=== PATIENT | female | born 1970 | race American Indian/Alaskan Native ===

== ENCOUNTER 2017-12-24 15:35 | Outpatient (CLI) | payer OTHER | END 2017-12-24 15:36 | disposition home or self-care (01) | LOC: LABHHL 15:35 | PROVIDERS: ATTEND Surgery | DX: D05.12 Intraductal carcinoma in situ of left breast (principal) | CPT/HCPCS: 88305; 88342; 88361 ==

== ENCOUNTER 2017-12-31 14:59 | Outpatient (CLI) | payer OTHER | END 2017-12-31 15:00 | disposition home or self-care (01) | LOC: LABHHL 14:59 | PROVIDERS: ATTEND Surgery | DX: N60.11 Diffuse cystic mastopathy of right breast (principal) | CPT/HCPCS: 88305 ==

== ENCOUNTER 2018-01-11 12:25 | Outpatient (CLI) | payer BC ==
--- NOTE | 2018-01-14 16:43 | Ultrasound Report ---
ULTRASOUND GUIDED NEEDLE CORE BIOPSY OF A LEFT AXILLARY LYMPH NODE WITH CLIP PLACEMENT : 01/11/18 12:25:00 CLINICAL: Newly diagnosed left breast cancer. COMPARISON :12/24/17 left mammogram. FINDINGS: The procedure was explained to the patient and informed consent was obtained. Ultrasound demonstrated a left axillary lymph node with mild cortical thickening of approximately 4 mm. The skin in the axilla was prepped with Betadine and anesthetized with 1% lidocaine. Ultrasound guided needle core biopsy of the lymph node was performed through a small dermatotomy using 2% lidocaine with epinephrine for deep anesthesia and a 18-gauge Achieve biopsy device. Multiple samples were obtained and placed in formalin. A clip was deployed within the lymph node. Hemostasis was achieved with minimal pressure and a sterile dressing was applied. The patient tolerated the procedure well and there were no apparent complications. She was discharged in good condition and was given instructions for wound care and followup. IMPRESSION: Uncomplicated ultrasound-guided needle core biopsy of a left lymph node with clip placement.
== END 2018-01-11 12:26 | disposition home or self-care (01) ==
LOC: SPVWC 12:25
PROVIDERS: ATTEND Surgery
DX: C50.912 Malignant neoplasm of unspecified site of left female breast (principal); D36.0 Benign neoplasm of lymph nodes
CPT/HCPCS: 38505; 76942; 88305; A4648

== ENCOUNTER 2018-01-14 13:05 | Outpatient (CLI) | payer BC ==
--- NOTE | 2018-01-14 16:54 | Magnetic Resonance Report ---
BILATERAL BREAST MRI WITHOUT AND WITH CONTRAST: 01/14/18 13:05:00 CLINICAL: Newly diagnosed left breast cancer. 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 COMPARISON:12/09/17 Bilateral Mammogram. TECHNIQUE: Axial 1.0-mm T1 without, axial high resolution 2.0-mm T2 and axial 1.0-mm dynamic Vibrant high-resolution postcontrast T1 fat saturation sequences on a 1.5 Sherry magnet. The examination was performed with an 8 channel dedicated [place] breast coil. Post processing with CAD and subtraction was performed on an [employer] workstation. 14.0 cc of Multihance was injected without incident via a right antecubital vein 22-gauge INT for the contrast portion of the exam. Consent was obtained prior to the administration of the contrast. FINDINGS: Right: Mild background parenchymal enhancement. No mass or suspicious enhancement of the right breast. No suspicious right axillary or right internal mammary lymph nodes. Left: Mild background parenchymal enhancement. A known cancer is an irregular enhancing mass at 3 o'clock 8.1 cm from the nipple measuring 1.4 x 1.2 x 1.9 cm. It contains a biopsy clip and demonstrates heterogeneous enhancement with mixed kinetics, 322 % peak enhancement and 1% type III washout. Segmental non-Mass enhancement contiguous to the known cancer measures 5.7 x 2.2 x 3.8 cm. The second known cancer is marked by a MicroMark clip at the margin of this non-Mass enhancement. A third lesion a focal non-Mass enhancement is identified at 6 o'clock 2.6 cm from the nipple and measures 6.0 x 3.0 x 2.4 mm. It demonstrates heterogeneous enhancement with mixed kinetics, 164% peak enhancement in 66% type III washout. The biopsied lymph node in the left axilla measures 1.2 x 0.9 cm and has no suspicious features. No suspicious left axillary or left internal mammary lymph nodes. IMPRESSION: 1. 2 known cancers in the left breast at 3 o'clock and 4 o'clock. Additional highly suspicious segmental non-Mass enhancement involving a 5.7 x 2.2 x 3.8 cm portion of the outer left breast is suspicious for multicentric tumor. 2. No suspicious lymph nodes. 3. Negative right breast. BI-RADS 6 -- Known Cancer
== END 2018-01-14 13:06 | disposition home or self-care (01) ==
LOC: SPVIMAG 13:05
PROVIDERS: ATTEND Surgery
DX: C50.412 Malignant neoplasm of upper-outer quadrant of left female breast (principal); C50.512 Malignant neoplasm of lower-outer quadrant of left female breast
CPT/HCPCS: A9577; C8908; 77059

== ENCOUNTER 2018-02-17 06:13 | Observation (INO) | payer BC ==
--- NOTE | 2018-02-16 12:04 | Anesthesia Consultation ---
Anesthesia Consult and Med Hx Date of service: 02/16/18 - Airway Anesthetic Teeth Evaluation: Good ROM Head & Neck: Adequate Mental/Hyoid Distance: Adequate Mallampati Class: Class II Intubation Access Assessment: Probably Good - Pulmonary Exam CTA: Yes - Cardiac Exam Cardiac Exam: RRR - Pre-Operative Health Status ASA Pre-Surgery Classification: ASA2 Proposed Anesthetic Plan: General (PEC block)
[2018-02-16 13:17] LABS: Basophils % (Auto) 0.4 % (0.0-1.8); Eosinophils # (Auto) 0.2 K/mm3 (0.0-0.4); Eosinophils % (Auto) 4.5 % (0.0-4.3); Lymphocytes # (Auto) 1.7 K/mm3 (1.2-5.4); Lymphocytes % (Auto) 34.8 % (13.4-35.0); Mean Corpuscular HGB Conc 30 % (30-34); Mean Corpuscular Volume 70 fl (79-97); Monocytes # (Auto) 0.4 K/mm3 (0.0-0.8); Monocytes % (Auto) 7.7 % (0.0-7.3); Platelet Count 519 K/mm3 (140-440); Red Blood Count 4.82 M/mm3 (3.65-5.03); Red Cell Distribution Width 18.1 % (13.2-15.2)
[2018-02-16 13:19] LABS: Hematocrit 33.9 % (30.3-42.9); Hemoglobin 10.1 gm/dl (10.1-14.3); Mean Corpuscular Hemoglobin 21 pg (28-32)
[2018-02-16 13:38] LABS: BUN/Creatinine Ratio 12; Blood Urea Nitrogen 7 mg/dL (7-17); Calcium 8.9 mg/dL (8.4-10.2); Hemolysis Index 4
[~2018-02-17 06:13] MED LIST: LACTATED RINGERS 1,000 ML IV SCH; VERSED IV NR
[2018-02-17] MEDS ORDERED: NACL BACTERIOSTATIC INFILTRATI ONE (06:30)
[2018-02-17] MEDS ORDERED: GARAMYCIN ONE (06:59)
[2018-02-17] MEDS ORDERED: ANCEF ONE (06:59)
[2018-02-17] MEDS ORDERED: NACL 0.9% 1000 ML 1,000 ML ONE ×2 (06:59→08:18)
[2018-02-17] MEDS ORDERED: METHYLENE BLUE ONE (06:59)
[2018-02-17] MEDS ORDERED: NACL 0.9% 50 ML ONE (07:00)
[2018-02-17] MEDS ORDERED: ANCEF/STERILE WATER 2 GM/20 ML IV NR (07:00)
[2018-02-17] MEDS ORDERED: BACITRACIN ONE (07:00)
[2018-02-17] MEDS ORDERED: NAROPIN O.5% ONE (07:15)
[2018-02-17] MEDS ORDERED: SUBLIMAZE ONE (07:16)
[2018-02-17] MEDS ORDERED: DIPRIVAN 10 MG/ML IV ONE (07:24)
[2018-02-17] MEDS ORDERED: WATER FOR IRRIG STERILE IR ONE (07:56)
--- NOTE | 2018-02-17 08:09 | Anesthesia Day of Surgery ---
Anesthesia Day of Surgery - Day of Surgery Patient Examined: Yes Patient H&P Reviewed: Yes Patient is NPO: Yes
[2018-02-17] MEDS ORDERED: TYLENOL PO PRN ×2 (08:10→12:42)
[2018-02-17] MEDS ORDERED: DILAUDID IV PRN (08:10)
[2018-02-17] MEDS ORDERED: PERCOCET 5/325 PO PRN (08:10)
[2018-02-17] MEDS ORDERED: NARCAN 0.4 MG/1 ML IV PRN (08:10)
[2018-02-17] MEDS ORDERED: TORADOL IV PRN (08:10)
[2018-02-17] MEDS ORDERED: ZOFRAN IV PRN ×2 (08:10→12:42)
[2018-02-17] MEDS ORDERED: DEMEROL IV PRN (08:10)
[2018-02-17] MEDS ORDERED: XYLOCAINE MPF 2% ONE (08:18)
[2018-02-17] MEDS ORDERED: DECADRON ONE (08:40)
[2018-02-17] MEDS ORDERED: DILAUDID ONE (10:03)
[2018-02-17] MEDS ORDERED: ANCEF IR ONE (10:40)
[2018-02-17] MEDS ORDERED: GARAMYCIN IV ONE (10:40)
[2018-02-17] MEDS ORDERED: BACITRACIN IR ONE (10:40)
--- NOTE | 2018-02-17 10:43 | Short Stay Summary ---
Short Stay Documentation Date of service: 02/17/18 - History H&P: obtained from office - Allergies and Medications Current Medications: Allergies No Known Allergies Allergy (Verified 02/16/18 12:29) Home Medications Medication Instructions Recorded Confirmed Last Taken Type No Known Home Medications [No 02/16/18 02/16/18 Unknown History Reported Home Medications] Active Medications Acetaminophen (Tylenol) 650 mg PO ONCE PRN PRN Reason: Pain, Mild (1-3) Stop: 02/17/18 13:00 Hydromorphone HCl (Dilaudid) 0.5 mg IV Q10MIN PRN PRN Reason: Pain , Severe (7-10) Stop: 02/17/18 13:00 Lactated Ringer's (Lactated Ringers) 1,000 mls @ 100 mls/hr IV DIRECT NEMESIO Last Admin: 02/17/18 06:33 Dose: 100 mls/hr Ketorolac Tromethamine (Toradol) 30 mg IV ONCE PRN PRN Reason: Pain, Moderate (4-6) Stop: 02/17/18 13:00 Meperidine HCl (Demerol) 25 mg IV ONCE PRN PRN Reason: Shivering Stop: 02/17/18 13:00 Midazolam HCl (Versed) 2 mg IV PREOP NR Stop: 02/17/18 23:59 Last Admin: 02/17/18 06:34 Dose: 2 mg Naloxone HCl (Narcan 0.4 Mg/1 Ml) 0.1 mg IV Q2MIN PRN PRN Reason: Res Rate </= 8 or 02 SAT < 92% Ondansetron HCl (Zofran) 4 mg IV ONCE PRN PRN Reason: Nausea And Vomiting Stop: 02/17/18 13:00 Oxycodone/Acetaminophen (Percocet 5/325) 1 tab PO ONCE PRN PRN Reason: Pain, Moderate (4-6) Stop: 02/17/18 13:00 - Brief post op/procedure progress note Date of procedure: 02/17/18 Pre-op diagnosis: Multicentric left breast cancer of the upper outer and lower outer quadrant Post-op diagnosis: same Procedure: Left total mastectomy with SLNB Anesthesia: GETA Findings: Radiograph specimen of mastectomy with 2 clips present; 4 SLNS negative for malignancy on frozen Surgeon: CHANEL SEAMAN Estimated blood loss: minimal Pathology: list (left mastectomy; 4 SLNs) Specimen disposition: to lab (left mastectomy, 4 SLNS) Condition: stable - Disposition Condition at discharge: Good Disposition: DC/TX-02 SHRT-TRM GEN HOSP IP Short Stay Discharge Plan Activity: other (no heavy lifting) Diet: regular Wound: other (keep incisions clean and dry; further direction by plastic surgery ) Follow up with: MAURICIO MENA MD [Primary Care Provider] - 7 Days CHANEL SEAMAN MD [Staff Physician] - 7 Days
--- NOTE | 2018-02-17 10:59 | Operative Report ---
Operative Report Operative Report: Date of Service: January Preoperative diagnosis: Multicentric Left breast cancer of the upper outer and lower outer quadrant Postoperative diagnosis: Same Procedure: Lef total mastectomy with sentinel lymph node biopsy Surgeon: Zarina John M.D. Asst.: JOE Escobedo Anesthesia: Gen. Findings: Radiograph specimen of 2 left breast clips present within left total mastectomy. 4 sentinel lymph nodes identified and negative for malignancy on frozen section of pathology Complications: None Drains: per Plastic Surgery Estimated blood loss: Minimal Disposition: PACU in good condition Indications for operative procedure: This is a 47-year-old lady with multicentric stage I left breast cancer of the upper outer and lower outer quadrants. Recommendations were to proceed with a left total mastectomy given multicentric left breast cancer. She wished to proceed with plastic reconstructive surgery with tissue department manager placement as well. She wished to proceed with the above procedure. Procedure in detail: Anesthesia placed left pectoral muscle block prior to going to the operating room. The patient was taken to the operating room and was placed supine. Gen. anesthesia was administered. The left nipple was injected with radioisotope. The known left breast cancer was located at the 3: 00 position 5 cm from the nipple and 4:00 position 3 cm from the nipple- ultrasound was used to yuli area of concern. Left breast was prepped and draped in the normal sterile operative fashion. Timeout was performed. Typical mastectomy incision markings were made to include biopsied area. Attention was taken towards the left breast. A gamma probe was inserted into the axilla to identify the sentinel lymph node location with uptake noted. A skin incision was made with a 10 blade knife and dissection taken down to the subcutaneous tissues. First began raising of the superior flap to the level of the clavicle superiorly and posteriorly to the pectoralis muscle. Followed by raising of the medial flap to the level of the sternum and posteriorly to the pectoralis muscle. Followed by raising of the lateral flap to the level of the latissimus dorsi muscle and taken down posteriorly. The gamma probe was inserted into the axilla, the axillary fascia was opened and 4 sentinel lymph nodes were identified with the gamma probe with highest count over 26,000 and all remaining counts were less than 10% of the highest SLN. Lymph nodes were sent to pathology with findings negative for malignancy noted on frozen section. Then proceeded with raising of the inferior flap to the level of the inframammary fold taken posterior to the pectoralis muscle. The mastectomy/ breast was removed from the pectoralis muscle without incident. The specimen was appropriately marked and sent to radiology with findings of 2 breast clips present and sent to pathology. Hemostasis was obtained with the bovie cautery. Plastic surgery then proceeded with tissue department manager placement.
[2018-02-17] MEDS ORDERED: ZOFRAN ONE (11:21)
--- NOTE | 2018-02-17 12:41 | Post Operative Note ---
Pre-op diagnosis: left breast cancer Post-op diagnosis: same Findings: left mastectomy defect Procedure: left breast reconstruction with tissue developmental psychologist and mesh Anesthesia: GETA Surgeon: DESIRE PERSAUD Estimated blood loss: minimal Pathology: none Condition: stable Disposition: PACU
[2018-02-17] MEDS ORDERED: BENADRYL PO PRN (12:42)
[2018-02-17] MEDS ORDERED: SODIUM CHLORIDE FLUSH SYRINGE 10 ML IV PRN (12:42)
[2018-02-17] MEDS ORDERED: REGLAN PO PRN (12:42)
[2018-02-17] MEDS ORDERED: FLEXERIL PO PRN (12:44)
[2018-02-17] MEDS ORDERED: ANCEF/NS 1 GM/50 ML 1 GM/50 ML BAG IV SCH (14:00)
[2018-02-17] MEDS: PERCOCET 5/325 PO PRN (14:00)
[2018-02-17] MEDS: LACTATED RINGERS 1,000 ML IV SCH ×2 (14:01→21:05)
[2018-02-17] MEDS: MORPHINE IV PRN ×2 (16:23→20:58)
[2018-02-17] MEDS: ceFAZolin 1 GM in NACL 0.9% 20 ML IV SCH (16:25)
[2018-02-17] MEDS: NEURONTIN PO SCH (20:07)
[2018-02-17] MEDS: COLACE PO SCH (22:05)
[2018-02-18] MEDS: ceFAZolin 1 GM in NACL 0.9% 20 ML IV SCH ×2 (00:07→11:36)
[2018-02-18] MEDS: MORPHINE IV PRN (04:26)
[2018-02-18] MEDS: NEURONTIN PO SCH (04:26)
[2018-02-18] MEDS: LACTATED RINGERS 1,000 ML IV SCH (04:28)
--- NOTE | 2018-02-18 06:33 | Progress Note ---
Assessment and Plan POD 1 s/p left mastectomy and TE reconstruction ADAT Ambulate Drain teaching DC planning for later this morning Subjective Date of service: 02/18/18 Narrative: Doing well, pain controlled. Objective Vital Signs - 12hr 02/17/18 02/17/18 02/18/18 20:00 20:58 00:13 Temperature 98.6 F 99.6 F Pulse Rate 78 82 Respiratory 18 20 20 Rate Blood Pressure 115/64 109/59 [Right] O2 Sat by Pulse 100 Oximetry 02/18/18 04:26 Temperature Pulse Rate Respiratory 20 Rate Blood Pressure [Right] O2 Sat by Pulse Oximetry - General physical appearance Narrative Exam: surgical site c/d/i, no hematoma or seroma. ARMOND in place and holding. Drains are serosang - Labs 02/16/18 11:24 02/16/18 11:24
--- NOTE | 2018-02-18 09:12 | Operative Report ---
PREOPERATIVE DIAGNOSIS: Left breast cancer. POSTOPERATIVE DIAGNOSIS: Left breast cancer. PROCEDURES: 1. Left breast reconstruction using tissue payroll administrator, CPT CODE 72500-K. 2. Left breast reconstruction utilizing biological mesh, FlexHD, CPT CODE 42926 -L. 3. Application of negative pressure wound VAC device, ARMOND for postoperative wound healing, CPT CODE 38755. SURGEON: Erick Barajas MD LITHOGRAPHIC PRESS OPERATOR APPRENTICE: None. ANESTHESIA: General. OPERATIVE INDICATIONS: This is a 47-year-old female who was referred to me by Dr. John for reconstruction options for her newly diagnosed breast cancer. The patient was going to undergo left-sided mastectomy and wanted to discuss autologous versus implant based reconstruction. We decided on an implant based reconstruction utilizing tissue payroll administrator and eventual silicone implant. Risks and benefits of surgery discussed with the patient. She agreed. OPERATIVE DETAILS: After informed consent was obtained, Dr. John brought the patient back to the operating room and placed the patient supine on the operating table. Preoperative antibiotics and general anesthesia were administered. Dr. John began her portion of the procedure and I came to the room when she was done, at which point a left-sided mastectomy had been completed with sentinel lymph node biopsy. I scrubbed and assessed the defect. There was a left-sided mastectomy with adequate skin remaining for closure. We measured the chest wall. Picked appropriate size payroll administrator and then prepared the tissue payroll administrator and the FlexHD for reconstruction. I created a subpectoral pocket by releasing the inferior border of the pectoralis major muscle. We then took a piece of medium pliable shaped perforated FlexHD 11 x 20 cm with serial #[id number], so that to the new inframammary fold and lateral breast border. We then took a [place] [employer] high profile 475 mL tissue payroll administrator with serial #[id number] and remove all of the air from it and then insufflated with 150 mL of methylene blue tinted saline. I placed that in the subpectoral pocket and then we closed the pectoralis major muscle to the FlexHD using a running 2-0 Vicryl suture. Everything was copiously irrigated with triple antibiotic irrigation. Hemostasis was controlled and then a 15-Citizen [place] and 19- Citizen [place] round Ritchie drains were placed in the prepectoral space in the axilla. We then closed using 2-0 Vicryl interrupted sutures on deep dermal layer and then a running 2-0 Monocryl barbed suture on the skin. We then applied a peak of negative pressure wound VAC device to the incision to help with postoperative wound healing. I placed the patient into a breast binder. She tolerated the procedure well, was awakened from general anesthesia, transferred to PACU in stable condition. ESTIMATED BLOOD LOSS: Less than 50 mL. COMPLICATIONS: None. SPECIMENS: None. FINDINGS: Left mastectomy defect. MTDD
[2018-02-18] MEDS: COLACE PO SCH (09:17)
[2018-02-18] MEDS: PERCOCET 5/325 PO PRN (11:35)
--- NOTE | 2018-02-18 13:01 | Mammography Report ---
SPECIMEN RADIOGRAPH LEFT BREAST: 02/17/18 CLINICAL: Mastectomy specimen FINDINGS: 2 biopsy clips are identified within the specimen and correlate with known cancers at 3 o'clock and 4 o'clock.
[2018-02-18 13:17] VITALS: BP 132/69
--- NOTE | 2018-02-19 10:03 | Operative Report ---
PREOPERATIVE DIAGNOSIS: Left breast cancer. POSTOPERATIVE DIAGNOSIS: Left breast cancer. PROCEDURES: 1. Left breast reconstruction using tissue sports equipment supervisor, CPT CODE 88913-B. 2. Left breast reconstruction utilizing biological mesh, FlexHD, CPT CODE 50273-Z. 3. Application of negative pressure wound VAC device, ARMOND for postoperative wound healing, CPT CODE 70041. SURGEON: Erick Barajas MD SENIOUR INSIGHT MANAGER: None. ANESTHESIA: General. OPERATIVE INDICATIONS: This is a 47-year-old female who was referred to me by Dr. John for reconstruction options for her newly diagnosed breast cancer. The patient was going to undergo left-sided mastectomy and wanted to discuss autologous versus implant based reconstruction. We decided on an implant based reconstruction utilizing tissue sports equipment supervisor and eventual silicone implant. Risks and benefits of surgery discussed with the patient. She agreed. OPERATIVE DETAILS: After informed consent was obtained, Dr. John brought the patient back to the operating room and placed the patient supine on the operating table. Preoperative antibiotics and general anesthesia were administered. Dr. John began her portion of the procedure and I came to the room when she was done, at which point a left-sided mastectomy had been completed with sentinel lymph node biopsy. I scrubbed and assessed the defect. There was a left-sided mastectomy with adequate skin remaining for closure. We measured the chest wall. Picked appropriate size sports equipment supervisor and then prepared the tissue sports equipment supervisor and the FlexHD for reconstruction. I created a subpectoral pocket by releasing the inferior border of the pectoralis major muscle. We then took a piece of medium pliable shaped perforated FlexHD 11 x 20 cm with serial #[id number], so that to the new inframammary fold and lateral breast border. We then took a [employer] high profile 475 mL tissue sports equipment supervisor with serial #[id number] and remove all of the air from it and then insufflated with 150 mL of methylene blue tinted saline. I placed that in the subpectoral pocket and then we closed the pectoralis major muscle to the FlexHD using a running 2-0 Vicryl suture. Everything was copiously irrigated with triple antibiotic irrigation. Hemostasis was controlled and then a 15-Portuguese and 19-Portuguese round Ritchie drains were placed in the prepectoral space in the axilla. We then closed using 2-0 Vicryl interrupted sutures on deep dermal layer and then a running 2-0 Monocryl barbed suture on the skin. We then applied a peak of negative pressure wound VAC device to the incision to help with postoperative wound healing. I placed the patient into a breast binder. She tolerated the procedure well, was awakened from general anesthesia, transferred to PACU in stable condition. ESTIMATED BLOOD LOSS: Less than 50 mL. COMPLICATIONS: None. SPECIMENS: None. FINDINGS: Left mastectomy defect. JOB# [id number] Victor Hugo/ANAHY
== END 2018-02-18 12:05 | disposition home or self-care (01) ==
LOC: OR 06:13 → OB 12:42
PROVIDERS: ADMIT Surgery; ATTEND Surgery
DX: C50.412 Malignant neoplasm of upper-outer quadrant of left female breast (principal); C50.512 Malignant neoplasm of lower-outer quadrant of left female breast
CPT/HCPCS: 19307; 36415; 76098; 78800; 80048; 84703; 85025; 88307; 88309; 88331; 88333; 88342; 96374; 96375; 96376; A9541; C1789; G0378; J0690; J1100; J1170; J1580; J2250; J2270; J2405; J2704; J2795; J3010; J7030; J7120; Q4128; Q9968

== ENCOUNTER 2018-06-22 08:14 | Outpatient (CLI) | payer BC ==
--- NOTE | 2018-06-22 08:47 | Mammography Report ---
RIGHT DIGITAL DIAGNOSTIC MAMMOGRAM with CAD: 06/22/18 08:14:00 CLINICAL: Six-month followup after stereotactic biopsy of benign calcifications. COMPARISON:12/31/17 and 12/09/17 FINDINGS: The breast is heterogeneously dense, which may obscure small masses. An outer biopsy clip correlates with the site of the stereotactic biopsy. No residual calcifications near the clip. No mass, architectural distortion or suspicious calcifications. IMPRESSION: No mammographic evidence of malignancy. BI-RADS CATEGORY: 2 -- Benign RECOMMENDATION: Routine mammographic screening. ACR BI-RADS MAMMOGRAPHIC CODES: 0 = Needs additional imaging evaluation; 1 = Negative; 2 = Benign; 3 = Probably benign; 4 = Suspicious; 5 = Malignant; 6 = Known biopsy-proven malignancy COMMENT: 1. Dense breast tissue, i.e., adenosis, fibrocystic changes, etc., may obscure an underlying neoplasm. 2. Approximately 10% of cancers are not detected with mammography. 3. A negative mammography report should not delay biopsy if a clinically suspicious mass is present. COMMENT: Patient follow-up letters are generated by our [employer] application.
== END 2018-06-22 08:15 | disposition home or self-care (01) ==
LOC: SPVWC 08:14
PROVIDERS: ATTEND Surgery
DX: C50.412 Malignant neoplasm of upper-outer quadrant of left female breast (principal)

== ENCOUNTER 2018-11-16 08:06 | Outpatient (CLI) | payer BC ==
--- NOTE | 2018-11-16 08:50 | Mammography Report ---
Right mammogram: CAD study utilized. Compared to 06/22/18. History: Patient status post left mastectomy. Findings: Heterogeneous breast parenchyma bilaterally. Biopsy clip in normal position. No interval change. No mass or microcalcification. Impression: Benign findings. Annual followup recommended. BI-RADS CATEGORY: 2 = Benign ACR BI-RADS MAMMOGRAPHIC CODES: 0 = Needs additional imaging evaluation; 1 = Negative; 2 = Benign; 3 = Probably benign; 4 = Suspicious; 5 = Malignant; 6 = Known biopsy-proven malignancy COMMENT: 1. Dense breast tissue, i.e., adenosis, fibrocystic changes, etc., may obscure an underlying neoplasm. 2. Approximately 10% of cancers are not detected with mammography. 3. A negative mammography report should not delay biopsy if a clinically suspicious mass is present.
== END 2018-11-16 08:07 | disposition home or self-care (01) ==
LOC: SPVWC 08:06
PROVIDERS: ATTEND Surgery
DX: Z12.31 Encounter for screening mammogram for malignant neoplasm of breast (principal)

== ENCOUNTER 2019-11-29 09:44 | Outpatient (CLI) | payer BC ==
--- NOTE | 2019-11-29 10:32 | Mammography Report ---
DIGITAL SCREENING MAMMOGRAM WITH CAD, 11/29/2019 INDICATION: Routine screening mammography. Breast cancer survivor status post left mastectomy with im plant reconstruction. TECHNIQUE: Digital right 2D mammography was obtained in the craniocaudal and mediolateral oblique pr ojections. This examination was interpreted with the benefit of Computer-Aided Detection analysis. COMPARISON: 11/16/2018 FINDINGS: Breast Density: The breast is heterogeneously dense, which may obscure small masses. There is no evidence of dominant mass, suspicious calcifications or architectural distortion in the r ight breast. An outer biopsy clip. IMPRESSION: No mammographic evidence of malignancy. Follow up recommendation: Routine yearly BI-RADS Category 2: Benign. A "normal" or negative report should not discourage follow up or biopsy of a clinically significant f inding. A written summary of these findings will be mailed to the patient. The patient will be entered into a mammography reporting system which will generate a reminder letter for the patient's next appointmen t at the appropriate interval. The [employer] recommends yearly mammograms starting at age 40 and continuing as l cheikh as a woman is in good health. Breast MRI is recommended for women with an approximate 20-25% or greater lifetime risk of breast cancer, including women with a strong family history of breast or ova bandar cancer or who have been treated for Hodgkin's disease. Signer Name: Noam Rothman MD Signed: 11/29/2019 10:28 AM Workstation Name: [id number]
== END 2019-11-29 09:45 | disposition home or self-care (01) ==
LOC: SPVWC 09:44
PROVIDERS: ATTEND Surgery
DX: Z12.31 Encounter for screening mammogram for malignant neoplasm of breast (principal)

== ENCOUNTER 2020-12-04 08:46 | Outpatient (CLI) | payer BC ==
--- NOTE | 2020-12-04 09:54 | Mammography Report ---
DIGITAL SCREENING MAMMOGRAM WITH CAD, 12/04/2020 CLINICAL INFORMATION / INDICATION: Routine screening mammography. The patient has a personal history of left breast cancer treated with mastectomy. She reports no new breast symptoms. TECHNIQUE: Digital right 2D mammography was obtained in the craniocaudal and mediolateral oblique pr ojections. This examination was interpreted with the benefit of Computer-Aided Detection analysis. COMPARISON: 11/29/2019, 11/16/2018, 06/22/2018 FINDINGS: Breast Density: The breasts are heterogeneously dense, which may obscure small masses. No dominant mass, suspicious calcifications, or architectural distortion in the right breast. Biopsy clip is again noted in the upper outer quadrant. IMPRESSION: No mammographic evidence of malignancy. Follow up recommendation: Routine yearly BI-RADS Category 2: Benign. A "normal" or negative report should not discourage follow up or biopsy of a clinically significant f inding. A written summary of these findings will be mailed to the patient. The patient will be entered into a mammography reporting system which will generate a reminder letter for the patient's next appointmen t at the appropriate interval. The [employer] recommends yearly mammograms starting at age 40 and continuing as l cheikh as a woman is in good health. Breast MRI is recommended for women with an approximate 20-25% or greater lifetime risk of breast cancer, including women with a strong family history of breast or ova bandar cancer or who have been treated for Hodgkin's disease. Signer Name: Mary Beth Gil MD Signed: 12/04/2020 9:49 AM Workstation Name: [id number]
== END 2020-12-04 08:47 | disposition home or self-care (01) ==
LOC: SPVWC 08:46
PROVIDERS: ATTEND Surgery
DX: Z12.31 Encounter for screening mammogram for malignant neoplasm of breast (principal)